=== PATIENT | female | born 1950 | race Caucasian/White ===

== ENCOUNTER 2016-09-12 12:03 | Inpatient (IN) | payer MEDICARE ==
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
--- NOTE | ~2016-09-12 | DS ---
Unit #: [id number] #: [id number] Patient: ABDULLAHI MURILLO [id number] [address] [place], [place] [address] [id number] I MR#: [id number] NAME: ABDULLAHI MURILLO ROOM: 228 Age: 66 Sex: F Admission Date: 09/12/2016 : 1950 Discharge Date: 09/17/2016 Attending Physician: Lucas Medina M.D. Primary Care Physician: Za Hale A.P.R.N. DISCHARGE SUMMARY PRINCIPAL DISCHARGE DIAGNOSES 1. Gross painless hematuria. 2. Chronic anticoagulation therapy. 3. Sick sinus syndrome. 4. Permanent pacemaker. 5. Spontaneous papillary bladder bleeding. 6. Left renal lesion consistent with a cyst. 7. Seizure disorder with recurrent seizure right here at the hospital. 8. Generalized anxiety disorder. 9. Anemia. 10. Old cerebrovascular accident. 11. Hypertension. PROCEDURES Cystoscopy with clot removal and stent placement on 09/16/16. CONSULTANTS 1. Dr. Juvencio Donald. 2. Dr. Quinn. REASON FOR HOSPITALIZATION The patient is a 66-year-old white female with history of seizure disorder, old CVA, hypertension, sick sinus syndrome, permanent pacemaker, chronic anticoagulation. Developed gross painless hematuria. Arrived in the emergency room with a hemoglobin of 10.5, 3+ blood in her urinalysis. CT scan showed a suspicious lesion in left kidney, and the patient was admitted. HOSPITAL COURSE The patient was admitted to a med/surg bed. Her warfarin was held. ProTimes were followed. Urology was consulted. Ultrasound was performed. Urine culture was sent and was no growth. Her hemoglobin remained stable. Renal ultrasound was more consistent with a cyst, but they recommended 6-month followup ultrasound. Patient had recurrent seizure while here. CT scan of the head was performed. Dr. Quinn was consulted. CT scan showed atrophy, chronic ischemic change, old left occipital lobe CVA but no acute abnormalities. Adjustments were made in her antiepileptics, and the patient remained seizure free. She underwent cystoscopy on the that did not show any significant lesions. A stent was placed by Dr. Donald. The clot was removed. It appeared to be secondary to benign papillary bleeding. She is tolerating a regular diet and will be discharged home. She is to return to his office on Thursday to have the stent removed. Unit #: [id number] #: [id number] Patient: ABDULLAHI MURILLO He has given her prescriptions for Zwingle 5/325 mg 1 q.6 hours p.r.n. pain, Keflex 500 mg t.i.d. (#18). She will be on a healthy heart diet. She is to have an office visit with us in 1 week, to have her ProTime checked with Dr. 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 Her other medications - Tylenol 650 q.6 p.r.n., Tegretol 200 mg b.i.d., Vimpat 150 mg twice daily, Keppra 500 mg twice daily, Celexa 40 mg daily, Metoprolol tartrate 25 mg b.i.d., Lipitor 10 mg daily, Coumadin 5 mg daily. She will follow up in our office in 1 week. Dictated by... Gill Solano/sonam TD: 09/17/2016 13:16 JOB #: [id number] DISCHARGE SUMMARY Page 1 of 1 X Lucas Medina MD X DISCHARGE SUMMARY
--- NOTE | ~2016-09-12 | OR ---
Unit #: [id number] #: [id number] Patient: ABDULLAHI MURILLO [id number] [address] [place], [place] [address] [id number] I MR#: [id number] NAME: ABDULLAHI MURILLO ROOM: 228 Date of Procedure: 09/16/2016 Admission Date: 09/12/2016 Surgeon: Juvencio Donald M.D. : 1950 Attending Physician: Lucas Medina M.D. Primary Care Physician: Za Hale A.P.R.N. OPERATIVE REPORT PREOPERATIVE DIAGNOSIS Gross hematuria. POSTOPERATIVE DIAGNOSIS Benign right renal papillary bleeding with clots. PROCEDURES PERFORMED Cystourethroscopy with bilateral retrogrades, right ureteroscopy, basket extraction of clot, stent placement. ANESTHESIA General with local supplementation. INDICATIONS FOR PROCEDURE This 66-year-old woman, who takes Coumadin, presented to the hospital with gross hematuria slow to resolve. She has continued to have brown urine since her prothrombin time was completely normalized. CT scan of the abdomen and pelvis with IV contrast is unrevealing. It does show an exophytic small left renal cyst retrospectively growing very slowly and consistent with an atypical cyst on ultrasound. Urine culture is negative. DESCRIPTION OF PROCEDURE The patient was given satisfactory general anesthesia and positioned in dorsal lithotomy. The genitalia were prepped and draped. The urethra was small and was sounded at 18-Burkinan and dilated gently to 24-Burkinan to allow placement of a 21-Burkinan rigid cystoscope. There was brown urine in the bladder and several small clots, which were evacuated. The bladder was carefully examined with the 30 and 70 degree lenses noting a healthy mucosa throughout. No stones, tumors, or suspicious areas. The right ureteral orifice appeared to have some debris at the opening, but then this may have just settled from irrigation of the bladder. The left ureteral orifice was normal. A Pollack catheter was placed in the left ureteral orifice and a left retrograde performed as follows. The left ureter was a single system, which filled with 5 mL of contrast demonstrating a normal ureter, delicate renal calices and no filling defects. There was prompt emptying of clear contrast return. Right retrograde as follows: The right ureter was entered with mild difficulty over a guidewire. Retrograde showed multilevel filling defects in a moderately dilated ureter with some mild calyceal dilatation. This was consistent with tumor or clot. A second guidewire was introduced Unit #: [id number] #: [id number] Patient: ABDULLAHI MURILLO using the ureteral access sheath. The rigid ureteroscope was passed over the second guidewire encountering multiple clots in the lower and mid ureter, which were individually basket extracted showing no urothelial lesions. Most of the ureter was clear. The flexible ureteroscope was passed again over a second guidewire into the kidney, where there was no large clot, but small clots formed and old in multiple calices and most calices were somewhat obscured. Vigorous mechanical irrigation and probing allowed inspection of each of the calices. There was no active bleeding, but the urothelium outside of the papillae was benign and the bleeding was thought almost certainly to have been from benign papillary bleeding. With very little remaining clot, I finally look down the ureter, was followed by placement of a 24 x 6 double-J stent internally in excellent position as confirmed radiographically. The bladder was drained. The cystoscope removed. The stent string shortened and tucked within the vagina and a Uro-jet applied. PLAN Plan is to remove the stent in 4 days. Discuss anticoagulation management with Medicine. Certainly if rebleeding, angiography may be the next best step as there may be an occult vascular abnormality. Dictated by... Gill Rice/priyanka TD: 09/16/2016 22:27 JOB #: [id number] OPERATIVE REPORT Page 1 of 1 X Juvencio Donald MD X PROCEDURE OPERATIVE NOTE
--- NOTE | ~2016-09-12 | CT71 ---
[facility] A Service of [facility] RADIOLOGY TEXT RESULTS PATIENT: ABDULLAHI MURILLO LOCATION: [facility] 228 : 48 UNIT #: [id number] AGE: [address]: Lucas Medina MD SEX: F ORDER DR: [id number] [facility] [address] [place], [place] [address] [id number] I MR#: [id number] Acc #: [id number] NAME: ABDULLAHI MURILLO : 1950 SEX: F STUDY DATE/TIME: 09/14/2016 17:17 UNIT: [facility] ROOM: [facility] STUDY DESCRIPTION: CT Head Wo Contrast Attending Physician: Lucas Medina M.D. Ordering Physician: Tisha Newell M.D. Primary Care Physician: Za Hale A.P.R.N. MEDICAL IMAGING REPORT This report is preliminary unless electronic signature is present EXAM Head CT without contrast 09/14/2016 HISTORY Seizure today and hypertension. TECHNIQUE This CT examination was performed with one or more of the following radiation dose reduction techniques: automatic exposure control, adjustment of mA and/or kV according to patient size, and iterative reconstruction. FINDINGS Multiple axial images were obtained from the skull base to vertex without intravenous contrast administration. There is mild generalized enlargement of the ventricles and sulci characteristic of atrophy and there is periventricular microvascular white matter ischemic change. Old infarct in the left occipital lobe is unchanged. There is no midline shift. There is no mass or mass effect, hemorrhage or acute infarct. The visualized paranasal sinuses are clear. IMPRESSION Atrophy and chronic ischemic change. Old infarct left occipital lobe. No acute intracranial abnormality. Dictated by... Hoang Tijerina M.D. THIS IS AN ELECTRONICALLY VERIFIED REPORT Hoang Tijerina M.D. at 09/15/2016 10:45 AM TERESA/timoteo [facility] A Service [facility] RADIOLOGY TEXT RESULTS PATIENT: ABDULLAHI MURILLO LOCATION: [facility] 228-[address] [facility] #: [id number] : [birth year] UNIT #: [id number] AGE: [address]: Lucsa Medina MD SEX: F ORDER DR: TD: 09/15/2016 07:08 JOB #: [id number] MEDICAL IMAGING REPORT Page 1 of 1 COPY
--- NOTE | ~2016-09-12 | CT2 ---
[facility] A Service of [facility] & [facility] RADIOLOGY TEXT RESULTS PATIENT: ABDULLAHI MURILLO LOCATION: [facility] 228-01 : 48 UNIT #: [id number] AGE: [address]: Lucas Medina MD SEX: F ORDER DR: [id number] [facility] [address] [place], [place] [address] [id number] I MR#: [id number] Acc #: [id number] NAME: ABDULLAHI MURILLO : 1950 SEX: F STUDY DATE/TIME: 09/12/2016 15:21 UNIT: [facility] ROOM: 228 STUDY DESCRIPTION: CT Abd and Pelv W Cont Attending Physician: Lucas Medina M.D. Ordering Physician: Sundeep Yang M.D. Primary Care Physician: Za Hale A.P.R.N. MEDICAL IMAGING REPORT This report is preliminary unless electronic signature is present EXAM CT of abdomen and pelvis with contrast. INDICATION Hematuria. Patient fell a few days ago with abdominal injury and has had blood in urine for a week. The patient is on Coumadin. COMPARISON 10/21/2008 TECHNIQUE The patient was given 100 mL of Isovue-370, and axial 5 mm images were obtained through the abdomen and pelvis with IV contrast. This CT exam was performed with one or more of the following radiation dose reduction techniques: automatic exposure control, adjustment of mA and/or kV according to patient size, and iterative reconstruction. FINDINGS The lung bases are clear. The gallbladder has been removed. The liver, spleen, pancreas, adrenal glands and right kidney are normal. The left kidney has an anterior exophytic well-circumscribed lesion. This measures 2.2 cm in maximum dimension. It measures 41 Hounsfield units, and is therefore, indeterminant on this study. It has developed from older studies. Aorta is normal in size. There is no adenopathy. The bowel including the appendix appears normal. The uterus, adnexal regions and bladder are normal. The bones are unremarkable. IMPRESSION 1. There is a 2.2 cm indeterminant lesion projecting anteriorly off of the lower pole of the left kidney. It has developed from older studies. It measures 41 Hounsfield units and is indeterminant, and a [facility] A Service of [facility] RADIOLOGY TEXT RESULTS PATIENT: ABDULLAHI MURILLO LOCATION: [facility] : [birth year] UNIT #: [id number] AGE: [address]: Lucas Medina MD SEX: F ORDER DR: renal cell carcinoma cannot be excluded, although, this could be a complex cyst. Follow-up as an outpatient with a renal ultrasound is recommended. 2. There is no evidence of bleeding from either kidney. There are no stones and the study is, otherwise, normal, except for previous cholecystectomy. Dictated by... Reinaldo Shrestha M.D. THIS IS AN ELECTRONICALLY VERIFIED REPORT Reinaldo Shrestha M.D. at 09/12/2016 10:10 PM ALONSO/moon TD: 09/12/2016 20:20 JOB #: [id number] MEDICAL IMAGING REPORT Page 1 of 1 COPY
--- NOTE | ~2016-09-12 | US77 ---
[facility] A Service of [facility] & [facility] RADIOLOGY TEXT RESULTS PATIENT: ABDULLAHI MURILLO LOCATION: [facility] 228-01 : 48 UNIT #: [id number] AGE: [address]: Lucas Medina MD SEX: F ORDER DR: [id number] [facility] [address] [place], [place] [address] [id number] I MR#: [id number] Acc #: [id number] NAME: ABDULLAHI MURILLO : 1950 SEX: F STUDY DATE/TIME: 09/15/2016 8:21 UNIT: [facility] ROOM: [facility] STUDY DESCRIPTION: US Kidney Bilateral Complete Attending Physician: Lucas Medina M.D. Ordering Physician: Tisha Newell M.D. Primary Care Physician: Za Hale A.P.R.N. MEDICAL IMAGING REPORT This report is preliminary unless electronic signature is present EXAM Renal ultrasound INDICATION Hematuria. The patient had a CT on 09/12/2016 which showed an indeterminate lesion arising from the inferior pole of the left kidney. This exam was requested for additional evaluation. TECHNIQUE Mckoy-scale and color Doppler sonographic images were obtained through the kidneys and bladder. FINDINGS Right kidney measures within normal size limits. There is some prominence of the right renal collecting system of uncertain clinical significance. It is a new finding when compared to the prior exam. Patient's urinary bladder is distended and potentially this may be related to that rather than to true hydro. Patient does have a hypoechoic lesion arising from the inferior pole of the left kidney. Area of concern on the left kidney appears to correspond to a cyst. No internal color Doppler flow. Is identified and appears relatively anechoic. Urinary bladder appears unremarkable. No hydronephrosis is seen on the left. IMPRESSION 1. Area of concern in the left kidney appears to correspond to a simple renal cyst. However, given its appearance on CT, I would suggest continuing sonographic follow up with next follow up in 6 months recommended. 2. There is some prominence of the right renal collecting system of uncertain clinical significance. It was not present on the prior examination and perhaps may be related to distension of urinary bladder. [facility] A Service of [facility] & [facility] RADIOLOGY TEXT RESULTS PATIENT: ABDULLAHI MURILLO LOCATION: [facility] 228-01 : [birth year] UNIT #: [id number] AGE: [address]: Lucas Medina MD SEX: F ORDER DR: Dictated by... Frances Villa M.D. THIS IS AN ELECTRONICALLY VERIFIED REPORT Frances Villa M.D. at 09/15/2016 4:48 PM AFF/aa TD: 09/15/2016 10:58 JOB #: [id number] MEDICAL IMAGING REPORT Page 1 of 1 COPY
--- NOTE | ~2016-09-12 | CO ---
Unit #: [id number] #: [id number] Patient: ABDULLAHI MURILLO [id number] [facility]. [place], [place] [address] [id number] MR#: [id number] NAME: ABDULLAHI MURILLO. ROOM: 228 Age: 66 Sex: F Admission Date: 09/12/2016 : 1950 Attending Physician: Lucas Medina M.D. Primary Care Physician: Za Hale A.P.R.N. Requesting Physician: Dhiraj Medina M.D. CONSULTATION REPORT REASON FOR CONSULTATION Renal mass and gross hematuria. HISTORY This 66-year-old woman presented to the emergency department yesterday after noting painless gross hematuria. She has had no frequency, urgency, dysuria or fever. She has no history of stones, urinary infection or tobacco use. She simply has noted gross hematuria. She did experience a fall one week ago. She is a markedly poor historian and at first said she fell on her back but she has no bruises there and then admits to falling on a table, consistent with ecchymosis of both medial thighs. She has no flank pain. She is having no pelvic pain. A CT scan does show a 2.2 cm lesion, markedly exophytic, off the lower pole of the left kidney anteriorly. This is suspicious for renal cell carcinoma because of its increased Hounsfield units but retrospection on previous CT scans also notes the lesion to have been present at exactly one half the size, 1.1 cm, in 2008. She admits to stress incontinence for which she wears a diaper. She has no trouble with urge incontinence, frequency, hesitancy or trouble emptying. Pertinent history also includes bearing one child vaginally. No hysterectomy. Bilateral tubal ligation. PAST MEDICAL HISTORY Past medical history includes seizure disorder, left-sided CVA, hypertension, permanent pacemaker, general anxiety. PAST SURGICAL HISTORY Pacemaker for bradyarrhythmia, right humerus lili, tubal ligation 1981, cholecystectomy. ADMISSION MEDICATIONS Celexa, Epitol, Coumadin, Lipitor, metoprolol. ALLERGIES None known. FAMILY HISTORY Noncontributory. SOCIAL HISTORY Never smoker. Unit #: [id number] #: [id number] Patient: ABDULLAHI MURILLO A REVIEW OF SYSTEMS Urologically as above. No chest pain or shortness of breath. No abdominal pain. Positive anxiety. PHYSICAL EXAMINATION GENERAL APPEARANCE: On examination patient is pleasant, alert. HEENT: Nearly absent dentition. HEENT otherwise unremarkable. LUNGS: Clear. CARDIAC: Rate and rhythm regular. ABDOMEN: Large, soft, full. No masses, tenderness or hernias. No lesions of back. No CVA tenderness. PELVIC EXAMINATION: Normal cervix and uterus. No urethral hypermobility or prolapse. No adnexal masses. No tenderness. Normal external genitalia. SKIN: Bilateral thigh ecchymoses as noted. EXTREMITIES: No edema. DIAGNOSTIC STUDIES LABORATORY: Laboratories included urinalysis with trace leukocyte esterase, no nitrites, 3+ blood, no cell count. Urine culture is pending. INR 3.5. BUN 15, creatinine 0.7. Hemoglobin 10.5, WBC 5.1. IMAGING: CT scan as described shows otherwise normal kidneys. No evidence of blood in the collecting system. Normal bladder. No hydronephrosis. No mass. IMPRESSION 1. Gross painless hematuria, could be a delayed response to injury but this appears unlikely. Certainly her elevated INR is a contributing factor. Doubt infection. Could be spontaneous renal bleed. Must rule out urothelial lesion at some point. Plan: Will resume diet, await urine culture results, observe off Coumadin. Needs a cystoscopy, bilateral retrograde, Thursday if here, otherwise as an outpatient. 2. Regarding the renal lesion, extended followup is certainly reasonable at this point although it appears benign by definition. 3. Stress incontinence, of limited concern to patient. Thank you Dr. Medina for the consultation. Dictated by... Juvencio Donald M.D. MARYLU/reji TD: 09/13/2016 15:41 JOB #: [id number] CC: Dhiraj Medina M.D. Unit #: [id number] #: [id number] Patient: ABDULLAHI MURILLO A CONSULTATION REPORT Page 1 of 1 X Juvencio Dnoald MD CONSULTATION REPORT
--- NOTE | ~2016-09-12 | HP ---
Unit #: [id number] #: [id number] Patient: ABDULLAHI MURILLO [id number] [address] [place], [place] [address] [id number] I MR#: [id number] NAME: ABDULLAHI MURILLO ROOM: 228 Age: 66 Sex: F Admission Date: 09/12/2016 : 1950 Attending Physician: Lucas Medina M.D. Primary Care Physician: Za Hale A.P.R.N. HISTORY AND PHYSICAL HISTORY OF PRESENT ILLNESS The patient is a 66-year-old white female with a history of seizure disorder, old CVA, hypertension, sick sinus syndrome, permanent pacemaker, anticoagulated, multiple recent falls which is unusual for the patient. She then developed gross hematuria. When she arrived in the emergency room her hemoglobin was 10.5. She had 3+ blood on her urinalysis, but only 0-2 RBCs per high powered field. They mentioned that the specimen seemed to be hemolyzed. In any case, they performed a CT scan with contrast in the emergency room that showed a suspicious lesion on the left kidney, which they said was new, but her last one that I could find at least in our computer was 10/21/2008, so it has been some 8 years since her last imaging. They said it was indeterminate by radiologic findings and recommended possible ultrasound. The emergency room doctor felt she needed to be admitted. I am not sure why, but in any case we are awaiting urology consultation for further evaluation. Currently holding her Coumadin. It has not been reversed as I do not think they will have any procedures scheduled, because it is not likely they will perform a biopsy, but possibly an ultrasound and then wait for her pro time to normalize before doing any further interventions. PAST MEDICAL HISTORY 1. Sick sinus syndrome. 2. Permanent pacemaker. 3. Anticoagulated. 4. Hypertension. 5. 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 6. Seizure disorder. 7. Generalized anxiety disorder. 8. Internal fixator lili right humerus. 9. Tubal ligation in 1981. 10. Cholecystectomy. SOCIAL HISTORY . Disabled. Nonsmoker and nondrinker. No street drug use. FAMILY HISTORY Noncontributory. ALLERGIES No known drug allergies. PREADMISSION MEDICATIONS 1. Celexa 40 mg daily. 2. Epitol 200 mg b.i.d. Unit #: [id number] #: [id number] Patient: ABDULLAHI MURILLO 3. Coumadin 10 mg daily. 4. Lipitor 10 mg daily. 5. Metoprolol tartrate 25 mg b.i.d. PHYSICAL EXAMINATION GENERAL: Awake, alert and oriented times three, in no acute distress. VITALS: Afebrile, pulse 63, respiratory rate 16, blood pressure 162/92. HEENT: Unremarkable. NECK: Supple without jugular venous distension, bruits, adenopathy or thyromegaly. CHEST: Clear to auscultation. HEART: Regular rate and rhythm without any murmurs, rubs or gallops. ABDOMEN: Soft, nondistended and nontender with positive bowel sounds and no hepatosplenomegaly. EXTREMITIES: No clubbing, cyanosis or edema. /RECTAL: Deferred. NEUROLOGIC: Some mild right-sided weakness in the right upper more than right lower extremity. Some facial asymmetry on the same side. DIAGNOSTIC STUDIES IMAGING: CT scan of the abdomen and pelvis with contrast 2.2 cm indeterminate left lower renal lesion, new versus 10/21/2008. LABORATORY: CBC normal except for hemoglobin of 10.5 with normal indices. Urinalysis trace leukocytes, 1+ protein, 3+ blood, 0-2 RBCs per high powered field. PTT 59.4, INR 3.5, BMP normal. ASSESSMENT 1. Gross hematuria. 2. Normocytic, normochromic anemia. 3. Indeterminate left renal mass. 4. Generalized anxiety disorder. 5. Sick sinus syndrome. 6. Permanent pacemaker. 7. Anticoagulated with supra therapeutic pro time. 8. Hypertension. 9. Old left CVA. 10. Status post cholecystectomy. 11. Status post bilateral tubal ligation. 12. Status post open reduction and internal fixation right humeral fracture. PLAN Hold warfarin. Follow pro times. Urology to consult. Possible ultrasound. Possible discharge with outpatient followup. Once her pro time is normalized she may need to undergo an operation. Will await urology's consultation first and adjust her blood pressure medications as her blood pressure has been running somewhat high overnight. She has SCDs on currently for DVT prophylaxis as we are holding her warfarin. Dictated by Lucas Medina M.D. RUSLAN/haydee TD: 09/13/2016 07:58 JOB #: [id number] Unit #: [id number] #: [id number] Patient: ABDULLAHI MURILLO HISTORY AND PHYSICAL Page 1 of 1 X Lucas Medina MD HISTORY AND PHYSICAL
[~2016-09-12 12:03] MED LIST: AGGRENOX; AGGRENOX PO; ALLERGY10 M1 PO; AMLODIPINE BESYL5 MG PO; ASPIR-TRIN325 MG PO; ASPIRIN PO; ASPIRIN81 M1 PO; ATIVAN PO; BAYER ASPIRIN325 M1 PO; BENADRYL PO; CALCIUM + D 6001 TA1 PO; CARBAMAZEPINE200 M3 PO; CARBATROL200 MG PO; CARBATROL300 MG PO; CARBITOL PO; CELEXA PO; CELEXA20 MG; CELEXA20 MG PO; CITALOPRAM HBR40 MG PO; COUMADIN10 MG PO; EPITOL PO; FLEXERIL10 MG PO; KEPPRA PO; KEPPRA500 M1 PO; KEPPRA500 M2 PO; KEPPRA500 MG PO; KEPPRA750 MG PO; LEVETIRACETAM750 M2 PO; LIPITOR PO; LOPRESSOR PO; LORTAB 7.5-5001 TAB PO; MEDROL PO; METOPROLOL TAR25 MG DOB; METOPROLOL TAR25 MG PO; MULTIVITAMINS1 EAC2 PO; NEO AU; NEXIUM; ORUDIS75 M1 PO; PHENERGAN PO; POLYMYXIN AU; SIMVASTATIN40 MG PO; TEGRETOL; TEGRETOL PO; TEGRETOL XR; TEGRETOL-XR200 MG DOB; TOPROL XL 50 MG50 MG PO; VIMPAT150 MG PO; VIMPAT50 MG PO; ZOCOR PO; ZOLOFT; [UNRECOGNIZED DRUG - OTHER] AU; [UNRECOGNIZED DRUG - OTHER] PO
[2016-09-12] MEDS ORDERED: CITALOPRAM HBR40 MG PO (12:36)
[2016-09-12] MEDS ORDERED: EPITOL PO (12:37)
[2016-09-12] MEDS ORDERED: VIMPAT150 MG PO (12:37)
[2016-09-12] MEDS ORDERED: LIPITOR PO (12:38)
[2016-09-12] MEDS ORDERED: COUMADIN5 MG PO (12:38)
[2016-09-12] MEDS ORDERED: METOPROLOL TAR25 MG PO (12:39)
[2016-09-12] MEDS ORDERED: KEPPRA500 M2 PO (12:39)
[2016-09-12 12:58] LABS: URINE SOURCE CLEAN CATCH
[2016-09-12 13:21] LABS: URINE APPEARANCE CLEAR; URINE BILIRUBIN NEG (NEG); URINE BLOOD 3+ (NEG); URINE COLOR YELLOW; URINE GLUCOSE NEG (NEG); URINE KETONE NEG (NEG); URINE LEUKOCYTE ESTERASE TRACE (NEG); URINE NITRATE NEG (NEG); URINE PROTEIN 1+ (NEG); URINE SPECIFIC GRAVITY 1.001 (1.003-1.035); URINE UROBILINOGEN 0.2 MG/DL (NEG)
[2016-09-12 13:24] LABS: BASOPHIL% 0.8 % (0-2.5); EOSINOPHIL# 0.1 X10e3 (0-0.7); EOSINOPHIL% 2.9 % (0.0-7.0); HEMATOCRIT 32.4 % (35.0-45.0); HEMOGLOBIN 10.5 gm/dL (12.0-16.0); LYMPHOCYTE# 1.1 X10e3 (1.0-3.5); LYMPHOCYTE% 22.6 % (17.0-45.0); MEAN CELL VOLUME 90.9 FL (83-96); MEAN CORPUSCULAR HEMOGLOBIN 29.4 PG (28-34); MEAN CORPUSCULAR HGB CONC 32.3 g/dL (30-36); MEAN PLATELET VOLUME 9.5 FL (6.5-11.5); MONOCYTE# 0.3 X10e3 (0-1.0); MONOCYTE% 6.8 % (3.0-12.0); NEUTROPHIL# 3.4 X10e3 (1.5-7.1); NEUTROPHIL% 66.9 % (40-75); PLATELET COUNT 177 X10e3 (140-420); RED BLOOD COUNT 3.56 X10e (3.90-5.30); RED CELL DISTRIBUTION WIDTH 13.8 % (11.0-15.5); WHITE BLOOD COUNT 5.1 X10e3 (4.0-10.5)
[2016-09-12 13:34] LABS: DIFF IND NO
[2016-09-12 13:35] LABS: CULTURE INDICATED? NO; URINE BACTERIA AUWI NEG (NEGATIVE); URINE SQUAMOUS EPITHELIAL CELL FEW /[HPF]; UWBCS1 AUWI 0-2 (0-5)
[2016-09-12 13:36] LABS: URBCS1 AUWI 0-2 /[HPF] (0-2)
[2016-09-12 13:45] LABS: INR 3.5; PARTIAL THROMBOPLASTIN TIME 59.4 SECONDS (23.5-31.3)
[2016-09-12 13:52] LABS: BUN/CREATININE RATIO 21.42; CALCIUM SERUM 8.6 mg/dL (8.4-10.2); CREATININE SERUM 0.7 mg/dL (0.6-1.4); POTASSIUM 4.4 mmol/L (3.5-5.1)
[2016-09-13 09:00] LABS: INR 3.5; PROTHROMBIN TIME (PATIENT) 38.5 SECONDS (9.6-11.5)
[2016-09-14 07:58] LABS: INR 2.6; PROTHROMBIN TIME (PATIENT) 28.2 SECONDS (9.6-11.5)
[2016-09-14 16:41] LABS: HEMATOCRIT 33.1 % (35.0-45.0); HEMOGLOBIN 10.7 gm/dL (12.0-16.0)
[2016-09-14 17:03] LABS: CALCIUM SERUM 9.1 mg/dL (8.4-10.2); CREATININE SERUM 1.1 mg/dL (0.6-1.4); GLOM FILT RATE Estimated 51.6 mL/min (>60); POTASSIUM 3.8 mmol/L (3.5-5.1)
[2016-09-15 06:56] LABS: HEMATOCRIT 29.5 % (35.0-45.0); HEMOGLOBIN 9.6 gm/dL (12.0-16.0); MEAN CORPUSCULAR HEMOGLOBIN 29.3 PG (28-34); MEAN CORPUSCULAR HGB CONC 32.5 g/dL (30-36); MEAN PLATELET VOLUME 9.1 FL (6.5-11.5); RED BLOOD COUNT 3.28 X10e (3.90-5.30); RED CELL DISTRIBUTION WIDTH 13.8 % (11.0-15.5); WHITE BLOOD COUNT 10.4 X10e3 (4.0-10.5)
[2016-09-15 07:14] LABS: INR 1.5
[2016-09-15 07:17] LABS: PARTIAL THROMBOPLASTIN TIME 29.5 SECONDS (23.5-31.3)
[2016-09-17] MEDS ORDERED: ACETAMINOPHEN650 M4 PO (07:35)
[2016-09-17] MEDS ORDERED: TEGRETOL PO (07:40)
[2016-09-17] MEDS ORDERED: VIMPAT150 MG PO (07:42)
[2016-09-17] MEDS ORDERED: KEPPRA500 M2 PO (07:43)
[2016-09-17] MEDS ORDERED: CEPHALEXIN500 M1 PO (07:45)
[2016-09-17] MEDS ORDERED: LORTAB 5-325 M1 EACH PO (09:48)
== END 2016-09-17 13:03 | disposition home or self-care (01) | DRG 670 ==
LOC: CED 12:03 → C2A 16:30 → CED 17:08 → C2A 17:08
PROVIDERS: Emergency Medicine; Internal Medicine; Physician Assistant Medical; Urology
PROC: 0TBB8ZZ Excision of Bladder, Via Natural or Artificial Opening Endoscopic (ICD-10-PCS; 2016-09-16)
PROC: 0T7C8DZ Dilation of Bladder Neck with Intraluminal Device, Via Natural or Artificial Opening Endoscopic (ICD-10-PCS; 2016-09-16)
PROC: BT1BYZZ Fluoroscopy of Bladder and Urethra using Other Contrast (ICD-10-PCS; principal; 2016-09-16 15:00)
DX: R31.0 Gross hematuria (principal); N28.1 Cyst of kidney, acquired; N32.89 Other specified disorders of bladder; G40.909 Epilepsy, unspecified, not intractable, without status epilepticus; Z86.73 Personal history of transient ischemic attack (TIA), and cerebral infarction without residual deficits; I10 Essential (primary) hypertension; Z95.0 Presence of cardiac pacemaker; Z79.01 Long term (current) use of anticoagulants; F41.1 Generalized anxiety disorder; Z90.49 Acquired absence of other specified parts of digestive tract; Z98.51 Tubal ligation status; D64.9 Anemia, unspecified; E78.5 Hyperlipidemia, unspecified; Z91.81 History of falling; N39.3 Stress incontinence (female) (male)
CPT/HCPCS: 36415; 70450; 74177; 76770; 80048; 80299; 81003; 85014; 85018; 85025; 85027; 85610; 85730; 87086; 99285; C1758; C2617; J0690; J2405; J3010; Q9967

== ENCOUNTER → 2016-09-24 | Outpatient (CLI) | payer MEDICARE ==
[~2016-09-24] MED LIST changes: +ACETAMINOPHEN650 M4 PO; +CEPHALEXIN500 M1 PO; +COUMADIN5 MG PO; +LORTAB 5-325 M1 EACH PO
--- NOTE | ~2016-09-24 | US77 ---
[facility] A Service of [facility] RADIOLOGY TEXT RESULTS PATIENT: ABDULLAHI MURILLO LOCATION: [facility] : 48 UNIT #: [id number] AGE: [address]: Juvencio Donald MD SEX: F ORDER DR: [id number] [facility] [address] [place], [place] [address] [id number] O MR#: [id number] Acc #: [id number] NAME: ABDULLAHI MURILLO : 1950 SEX: F STUDY DATE/TIME: 09/24/2016 14:28 UNIT: [facility] ROOM: STUDY DESCRIPTION: US Kidney Bilateral Complete Attending Physician: Juvencio Donald M.D. Ordering Physician: Juvencio Donald M.D. Primary Care Physician: Lucas Medina M.D. MEDICAL IMAGING REPORT This report is preliminary unless electronic signature is present EXAM Renal ultrasound bilateral 09/24/2016 INDICATIONS 66-year-old female with history of renal mass. Pelvocaliectasis/mild hydronephrotic change on the prior ultrasound of 09/15/2016. Hypertension. TECHNIQUE Sonographic imaging of the kidneys was performed bilaterally. COMPARISON 09/15/2016 FINDINGS The right kidney measures 10.4 cm long axis and the left measures 10.2 cm. No shadowing stone on either side. There is mild pelvocaliectasis or early hydronephrotic change of the right kidney. This persists on postvoid imaging of the bladder. This is new compared to the prior CT. Similar findings were also present on the prior ultrasound of 09/15/2016 and the etiology is unclear. There is no hydronephrosis on the left. There is a benign cyst arising from the lower pole left kidney measuring up to about 1.8 cm. This corresponds to the hyperdense lesion on the prior CT but is a benign finding on ultrasound. Additional tiny cyst arising from the lower pole left kidney measures up to about 7-8 mm corresponding to a very tiny cyst on CT but has benign features on CT where it is better characterized than on ultrasound due to its small size. Bladder unremarkable. No significant postvoid residual. IMPRESSION 1. Persistent mild hydronephrotic change of the right kidney of unclear etiology. This did not resolve with postvoid imaging of the bladder. [facility] A Service of [facility] RADIOLOGY TEXT RESULTS PATIENT: ABDULLAHI MURILLO LOCATION: [facility] : 46 UNIT #: [id number] AGE: [address]: Juvencio Donald MD SEX: F ORDER DR: No significant postvoid residual. 2. The hydronephrosis on the right is new compared to the CT of 09/12/2016 but similar in appearance to ultrasound of 09/15/2016. 3. There are 2 incidental benign cysts in the lower pole left kidney measuring 18 mm and 7-8 mm respectively. STAT * RESULT Dictated by... Alexis Morales M.D. THIS IS AN ELECTRONICALLY VERIFIED REPORT Alexis Morales M.D. at 09/24/2016 4:58 PM KATEY/heather TD: 09/24/2016 16:28 JOB #: [id number] MEDICAL IMAGING REPORT Page 1 of 1 COPY
== END | disposition home or self-care (01) ==
LOC: CWCC 14:19
DX: D41.02 Neoplasm of uncertain behavior of left kidney (principal); R31.0 Gross hematuria; N28.89 Other specified disorders of kidney and ureter; N13.30 Unspecified hydronephrosis; N28.1 Cyst of kidney, acquired
CPT/HCPCS: 76770

== ENCOUNTER 2016-09-27 11:23 | Emergency (ER) | payer MEDICARE ==
--- NOTE | ~2016-09-27 | CR72 ---
[facility] A Service [facility] RADIOLOGY TEXT RESULTS PATIENT: ABDULLAHI MURILLO LOCATION: [facility] : 48 UNIT #: [id number] AGE: [address]: Juvencio Goode MD SEX: F ORDER DR: [id number] [facility] [address] [place], [place] [address] [id number] E MR#: [id number] Acc #: [id number] NAME: ABDULLAHI MURILLO : 1950 SEX: F STUDY DATE/TIME: 09/27/2016 12:43 UNIT: [facility] ROOM: STUDY DESCRIPTION: CR Chest Single View Portable Attending Physician: Juvencio Goode M.D. Ordering Physician: Juvencio Goode M.D. Primary Care Physician: Lucas Medina M.D. MEDICAL IMAGING REPORT This report is preliminary unless electronic signature is present EXAM Portable chest. DATE OF EXAM 09/27/2016 HISTORY 66-year-old female with shortness of air and chest pain beginning today. COMPARISON Chest, 06/28/2014. FINDINGS Frontal chest demonstrates clear lungs. No pleural effusion or pneumothorax. Mild cardiomegaly stable. Left-sided pacing complex. Right-sided vagal stimulator. Mediastinum and pulmonary vasculature unremarkable. IMPRESSION Stable mild cardiomegaly. No other acute chest findings. Dictated by... John Conroy M.D. THIS IS AN ELECTRONICALLY VERIFIED REPORT John Conroy M.D. at 09/28/2016 6:24 AM LORI/moon TD: 09/27/2016 16:18 JOB #: [id number] MEDICAL IMAGING REPORT [facility] A Service [facility] RADIOLOGY TEXT RESULTS PATIENT: ABDULLAHI MURILLO LOCATION: [facility] : 48 UNIT #: [id number] AGE: [address]: Juvencio Goode MD SEX: F ORDER DR: Page 1 of 1 COPY
--- NOTE | ~2016-09-27 | EKG ---
PATIENT: ABDULLAHI MURILLO UNIT #: [id number] Ventricular Rate: 61 BPM Atrial Rate: 61 BPM P-R Interval: 206 ms QRS Duration: 80 ms Q-T Interval: 442 ms QTC Calculation(Bezet): 444 ms P Boston: 28 degrees Calculated R [place]: 44 degrees Calculated T [place]: 39 degrees Diagnosis Line: Normal sinus rhythm Diagnosis Line: Normal ECG Diagnosis Line: Diagnosis Line: Confirmed by THU BERNARDO MD ([id number]) on Diagnosis Line: 09/27/2016 4:33:50 PM INTERPRETING MD: [place] TOWNSEND
[2016-09-27 15:58] LABS: BASOPHIL% 0.2 % (0-2.5); EOSINOPHIL% 0.1 % (0.0-7.0); LYMPHOCYTE# 0.6 X10e3 (1.0-3.5); LYMPHOCYTE% 10.2 % (17.0-45.0); MEAN CELL VOLUME 90.6 FL (83-96); MEAN PLATELET VOLUME 9.4 FL (6.5-11.5); MONOCYTE# 0.6 X10e3 (0-1.0); MONOCYTE% 9.6 % (3.0-12.0); NEUTROPHIL# 4.6 X10e3 (1.5-7.1); NEUTROPHIL% 79.9 % (40-75); PLATELET COUNT 181 X10e3 (140-420); RED BLOOD COUNT 3.09 X10e (3.90-5.30); RED CELL DISTRIBUTION WIDTH 13.6 % (11.0-15.5); WHITE BLOOD COUNT 5.8 X10e3 (4.0-10.5)
[2016-09-27 16:01] LABS: DIFF IND NO
[2016-09-27 16:17] LABS: INR 1.3
[2016-09-27 16:19] LABS: BUN/CREATININE RATIO 25.71; CALCIUM SERUM 8.5 mg/dL (8.4-10.2); CREATININE SERUM 0.7 mg/dL (0.6-1.4); POTASSIUM 3.5 mmol/L (3.5-5.1)
[2016-09-27 17:04] LABS: AMPHETAMINE NEG (NEG); BARBITURATES NEG (NEG); BENZODIAZEPINES NEG (NEG); COCAINE NEG (NEG); MARIJUANA NEG (NEG); OPIATES POS (NEG); TRICYCLIC ANTIDEPRESSANTS NEG (NEG); U METHADONE NEG (NEG)
== END 2016-09-27 17:05 | disposition home or self-care (01) ==
LOC: CED 11:23
PROVIDERS: Emergency Medicine
DX: R56.9 Unspecified convulsions (principal); Z79.899 Other long term (current) drug therapy
CPT/HCPCS: 71010; 80048; 80307; 85025; 85610; 93005; 99284

== ENCOUNTER → 2016-12-26 | Outpatient (CLI) | payer MEDICARE ==
--- NOTE | ~2016-12-26 | NM29 ---
[facility] A Service of [facility] RADIOLOGY TEXT RESULTS PATIENT: ABDULLAHI MURILLO LOCATION: [facility] : 48 UNIT #: [id number] AGE: [address]: Juvencio Donald MD SEX: F ORDER DR: [id number] [facility] [address] [place], [place] [address] [id number] O MR#: [id number] Acc #: [id number] NAME: ABDULLAHI MURILLO : 1950 SEX: F STUDY DATE/TIME: 12/26/2016 11:44 UNIT: [facility] ROOM: STUDY DESCRIPTION: NM Kidney Vasc Flow Sng W Attending Physician: Juvencio Donald M.D. Referring Physician: Juvencio Donald M.D. Ordering Physician: Juvencio Donald M.D. Primary Care Physician: Lucas Medina M.D. MEDICAL IMAGING REPORT This report is preliminary unless electronic signature is present EXAM Renal nuclear medicine flow and function study HISTORY Hydronephrosis. Back pain. Kidneys hurt when urinating. Urinary tract infections. Low calcium. Symptoms since September 2016. Renal ultrasound 09/24/2016 showed mild hydronephrosis in the right kidney. COMPARISON Renal ultrasound from 09/24/2016. FINDINGS The patient was given 4.26 mCi of technetium 99 MAG3. Imaging was performed in the anterior and posterior projections over the kidneys out to 53 minutes. Time activity curves were generated. The study appears normal. The peak activity occurred in 5 minutes bilaterally with time of half peak activity 5 minutes or less bilaterally. The left kidney has 45.6% of the activity and the right kidney has 54.4% of the activity. Lasix was administered at 5 minutes and it was 40 mg of Lasix. IMPRESSION Study appears normal. There is normal flow and function in each kidney and normal clearance. Dictated by... Reinaldo Shrestha M.D. THIS IS AN ELECTRONICALLY VERIFIED REPORT Reinaldo Shrestha M.D. at 12/30/2016 1:36 PM ALONSO/ayana TD: 12/30/2016 12:30 [facility] A Service of [facility] & [facility] RADIOLOGY TEXT RESULTS PATIENT: ABDULLAHI MURILLO LOCATION: [facility] #: [id number] : 46 UNIT #: [id number] AGE: [address]: Juvencio Donald MD SEX: F ORDER DR: JOB #: [id number] MEDICAL IMAGING REPORT Page 1 of 1 COPY
== END | disposition home or self-care (01) ==
LOC: CNUC 12-22 11:30
DX: N13.30 Unspecified hydronephrosis (principal)
CPT/HCPCS: 78708; A9562; J1940